=== PATIENT | female | born 1980 | race Caucasian/White ===

== ENCOUNTER 2025-05-04 10:15 | Emergency (ER) | payer MEDICAID, SELFPAY ==
[2025-05-04 10:37] VITALS: BP 138/90; PULSE 75; RESP 16; TEMP 36.9; O2SAT 100; BMI 27.3
--- NOTE | 2025-05-04 10:49 | XR_ITS ---
Examination: Abdomen sonogram, Limited Date and time of exam: 05/04/2025, 11:53 AM. INDICATION: Vomiting Technique: Real-time art scale transabdominal sonographic images of the upper abdomen obtained. Findings: Liver measures 14.4 cm and is diffusely echogenic. No focal masses. No evidence of gallbladder stones, wall thickening or pericholecystic fluid. Normal-appearing 3 mm gallbladder wall. Normal-appearing 2 mm common bile duct Normal hepatopedal flow in the portal vein. The IVC is patent. Pancreatic head appears normal. IMPRESSION: No evidence of cholelithiasis or cholecystitis. Fatty infiltration the liver without focal evidence of mass.
--- NOTE | 2025-05-04 10:49 | XR_ITS ---
Examination: PA lateral 2 views Technique: Upright lateral 2 views Date and time: May 04, 2025 1057 hrs. Comparison: November 26, 2022 Indications: Shortness of breath today. Findings: Normal heart size. Lungs are clear. The osseous structures are intact Impression: No active disease.
--- NOTE | 2025-05-04 10:49 | XR_ITS ---
Examination: CT abdomen and pelvis without contrast. Coronal 3-D reconstructions. Sagittal 2-D reconstructions. Date and time of exam:05/04/2025, 1:04 PM CTDI: vol (mGy): 7.94 DLP: (mGycm): 416 Indication: Right-sided flank pain Technique: Axial images of the abdomen have been obtained, 3 mm slice thickness Intravenous contrast material has not been administered. Low dose protocols were performed. One or more of the following dose reduction techniques were used; automated exposure control, adjustment of the mA and/or KV according to patient size, use of iterative reconstruction technique. Findings: Lung bases are clear. Liver, gallbladder, pancreas, spleen and bilateral adrenal glands are normal in size and contour 3 mm calculus in the distal right ureter. Multiple 1 mm nonobstructive calculi in the bilateral kidneys. No evidence of hydronephrosis or perinephric inflammation. Visualized GI tract is unremarkable. The appendix appears normal. No evidence for right lower quadrant inflammation. No no evidence of intra-abdominal masses or fluid collections. No evidence of acute bony abnormality. IMPRESSION: 3 mm calculus distal right ureter. No evidence of hydronephrosis or perinephric inflammation.
--- NOTE | 2025-05-04 10:52 | PD.EDRME ---
Rapid Medical Screening Exam E Arrival date/time: 05/04/25 10:15 45-year-old female presents to the emergency department today for multiple complaints including sore throat, abdominal pain, back pain and epistaxis. Chief Complaint: Back Pain/Injury Vital signs: Vital Signs Temperature 98.4 F 05/04/25 10:37 Pulse Rate 75 05/04/25 10:37 Respiratory Rate 16 05/04/25 10:37 Blood Pressure 138/90 H 05/04/25 10:37 Pulse Oximetry (%) 100 05/04/25 10:37 Oxygen Delivery Method Room Air 05/04/25 10:37
[2025-05-04 11:19] LABS: Basophils # (Auto) 0.1 Thou/mm3 (0.0-0.2); Basophils % (Auto) 1 % (0-2.5); Eosinophils # (Auto) 0.3 Thou/mm3 (0.0-0.5); Eosinophils % (Auto) 5 % (0-10); Hematocrit 38.6 % (36.0-46.0); Hemoglobin 12.2 g/dL (12.0-16.0); Immature Granulocytes Auto 0.01 Thou/mm3 (0.00-0.00); Lymphocytes # (Auto) 2.0 Thou/mm3 (1.0-4.8); Lymphocytes % (Auto) 38 % (10-50); Mean Corpuscular HGB Conc 31.6 g/dl (31.0-37.0); Mean Corpuscular Hemoglobin 25.4 pg (25.0-35.0); Mean Corpuscular Volume 80 fL (80-100); Monocytes # (Auto) 0.9 Thou/mm3 (0.0-0.8); Monocytes % (Auto) 16 % (0-12); Neutrophils # (Auto) 2.2 Thou/mm3 (1.8-7.7); Neutrophils % (Auto) 40 % (37-80); Nucleated Red Blood Cell # 0.00 Thou/mm3 (0.00-0.00); Nucleated Red Blood Cell % 0 /100 WBC (0); Platelet Count 233 Thou/mm3 (140-440); RDW Standard Deviation 54.8 fL (36.4-46.3); Red Blood Count 4.81 Miln/mm3 (4.00-5.20); White Blood Count 5.4 Thou/mm3 (3.6-11.0)
[2025-05-04 11:28] LABS: Strep A Rapid Negative (Negative)
[2025-05-04 11:34] LABS: Alanine Aminotransferase 85 U/L (10-49); Albumin, Serum 4.8 gm/dL (3.5-5.0); Albumin/Globulin Ratio 1.2 (1.2-2.2); Alkaline Phosphatase 82 U/L (46-116); Anion Gap 11 (7-16); Aspartate Amino Transferase 69 U/L (0-34); BUN/Creatinine Ratio 10 Ratio (12-20); Bilirubin,Total 0.9 mg/dL (0.3-1.2); Blood Urea Nitrogen 9 mg/dL (9-23); Calcium 10.7 mg/dL (8.3-10.6); Calcium (Corrected) 10.7 mg/dL (8.5-10.1); Carbon Dioxide 22.0 mMol/L (20.0-31.0); Chloride 104 mMol/L (98-107); Creatinine (Component) 0.9 mg/dL (0.6-1.3); Estimated Creatinine Clearance 71.3 mL/min (>60); Globulin 4.0 gm/dL (2.3-3.5); Glucose 100 mg/dL (74-106); Lipase 50 U/L (12-53); Magnesium 1.9 mg/dL (1.6-2.6); Osmolality,Calculated 272 (275-295); Potassium 3.9 mMol/L (3.4-5.1); Sodium 137 mMol/L (136-145); Total Protein 8.8 gm/dL (5.7-8.2); Troponin I < 0.002 ng/mL (0.0-0.045); eGFR > 60 See Note
[2025-05-04 11:44] LABS: INR 1.0 (0.9-1.3); Partial Thromboplastin Time 25.9 Seconds (22.0-36.0); Prothrombin Time 11.1 Seconds (9.0-12.2)
[2025-05-04 12:33] LABS: Collection Type, Urine Clean Catch
[2025-05-04 12:46] LABS: Bacteria,Urine 4+; Bilirubin,Urine Negative (Negative); Blood,Urine Negative (Negative); Clarity,Urine Turbid (Clear/Hazy); Color,Urine Lt-Yellow (Lt Yel-Yel); Culture Indicated,Urine Contaminated; Glucose, Urine Negative (Negative); HCG Qualitative,Urine Negative; Ketones,Urine Negative (Negative); Leukocyte Esterase,Urine Negative (Negative); Nitrite,Urine Negative (Negative); PH,Urine 7.0 (5.0-7.0); Protein,Urine Negative (Neg - Trace); RBC,Urine 2 /hpf (0-3); Specific Gravity,Urine 1.006 (1.001-1.035); Squamous Epithelial Cell,Urine 15 /hpf (0-5); Urobilinogen,Urine Negative mg/dL (0.0-1.0); WBC,Urine 4 /hpf (0-5)
[2025-05-04 12:50] LABS: Amphetamine/Methamp Scrn,U Negative (Negative); Barbiturate Screen,Urine Negative (Negative); Benzodiazepines Screen,Urine Negative (Negative); Benzoylecgonine Screen, Ur Negative (Negative); Fentanyl Screen,Urine Negative (Negative); Opiate Screen,Urine Negative (Negative); THC Screen,Urine Negative (Negative)
[2025-05-04 16:09] LABS: Mono Screen Positive (Negative)
--- NOTE | 2025-05-04 16:09 | PD.EDADULT ---
ED General RME/HPI General Chief complaint: Back Pain/Injury Stated complaint: FEELING LETHARGIC X 2 DAYS, BACK PAIN, NOSE BLEEDS Time Seen by Provider: 05/04/25 11:19 Arrival date/time: 05/04/25 10:15 CC: The right flank pain sore throat neck pain upper back pain. Patient states that she has been detoxing using chewable nicotine and decreasing her alcohol intake. But she had a sudden onset of the symptoms approximately 24 hours ago. Patient states they are somewhat the same however the patient does not appear in any acute distress. Vital signs are essentially stable. Denies chest pain fever chills RME / HPI RME / HPI narrative: 05/04/25 10:15 45-year-old female presents to the emergency department today for multiple complaints including sore throat, abdominal pain, back pain and epistaxis. Related Data Previous Rx's ?Medication ?Instructions ?Recorded albuterol sulfate 90 mcg/actuation 1 puff inhalation QID PRN 11/26/22 aerosol inhaler shortness of breath or wheezing #8.5 grams ketorolac 10 mg tablet 10 mg PO Q8H #10 tabs 05/04/25 ondansetron 4 mg disintegrating 4 mg PO Q8H #10 tabs 05/04/25 tablet Allergies Allergy/AdvReac Type Severity Reaction Status Date / Time avocado Allergy Severe THRAOT Verified 05/04/25 10:19 SWELLING banana Allergy Severe THRAOT Verified 05/04/25 10:19 SWELLING corn Allergy Severe THROAT Verified 05/04/25 10:19 SWELL AND ITCH White Potato Allergy Intermediate THROAT Uncoded 03/01/10 15:13 ITCH AND SWELL Review of Systems Review of Systems Narrative Review of Systems: GEN: No fever, no chills, no weight loss EYES: No discharge, no visual changes, no pain HEENT: No ear pain, no congestion, no sore throat PULM: No shortness of breath, no cough, no congestion CV: No chest pain, no dyspnea on exertion, no palpitations GI: No nausea, no vomiting, no diarrhea, no pain, no constipation : No frequency, no urgency, no dysuria MUSC/SKEL: No joint pain, no back pain, + SKIN: No rash PSYCH: No hallucinations, no depression HEME/LYMPH: No easy bleeding or bruising tendencies NEURO: No weakness, no headache Past Medical History Social History SMOKING STATUS: Never smoker ED Exam Narrative Physical exam: [General: Anxious but not in any acute distress Head normocephalic HEENT: Eyes pupils are PERRLA EOMs are intact mouth pink dry membranes uvula is midline swallow symmetrical phonation is normal all the subsystems of HEENT are within acceptable limits Neck is supple nontender Chest equal chest rise nontender to palpation Respiratory: Clear to auscultation no wheezes crackles or rubs CV: Rate rhythm is regular no murmurs rubs or clicks Abdomen is soft nontender no masses positive bowel sounds all 4 quadrants Back: No CVA tenderness no spinous process tenderness from cervical spine thoracic and lumbar spine Skin: Intact no petechiae rash induration ulceration or crepitus Extremities: Moving all extremity against resistance cap refill less than 2 seconds neurosensory intact Neuro: Awake alert oriented x3 Glascow coma 15 no focal deficits] Course Quality Measures none Orders Category Date Time Status Bedside COVID-19 Antigen Test NOW Care 05/04/25 10:49 Active Bedside Influenza A&B Antigen Test NOW Care 05/04/25 10:[address] abdomen pelvis wo con Stat Exams 05/04/25 10:49 Completed US gall bladder Stat Exams 05/04/25 10:49 Completed XR chest 2V Stat Exams 05/04/25 10:49 Completed CBC Stat Lab 05/04/25 10:54 Completed Comprehensive Metabolic Panel Stat Lab 05/04/25 10:54 Completed Drug Screen,Urine Stat Lab 05/04/25 11:45 Completed HCG Qualitative,Urine Stat Lab 05/04/25 11:45 Completed Lipase Stat Lab 05/04/25 10:54 Completed Magnesium Stat Lab 05/04/25 10:54 Completed [place] Screen Stat Lab 05/04/25 10:54 Completed Partial Thromboplastin Time Stat Lab 05/04/25 10:54 Completed Prothrombin Time with INR Stat Lab 05/04/25 10:54 Completed Strep A Rapid Stat Lab 05/04/25 10:34 Completed Troponin I Stat Lab 05/04/25 10:54 Completed Urinalysis, C/S if Indicated Stat Lab 05/04/25 11:45 Completed Vital Signs Vital signs: Vital Signs Temperature 98.4 F 05/04/25 10:37 Pulse Rate 75 05/04/25 10:37 Respiratory Rate 16 05/04/25 10:37 Blood Pressure 138/90 H 05/04/25 10:37 Pulse Oximetry (%) 100 05/04/25 10:37 Oxygen Delivery Method Room Air 05/04/25 10:37 Discharge Plan Plan Patient Disposition: HOME (Self Care) Patient condition on transfer: Stable Prescriptions/Referrals Prescriptions/Med Rec: New ketorolac 10 mg tablet 10 mg PO Q8H Qty: 10 0RF Rx Instructions: maximum total duration of 5 days from all oral, intranasal, or parenteral formulations ondansetron 4 mg tablet,disintegrating 4 mg PO Q8H Qty: 10 0RF No Action albuterol sulfate 90 mcg/actuation HFA aerosol inhaler 1 puff inhalation QID PRN (Reason: shortness of breath or wheezing) Qty: 8.5 0RF Referrals: Hari Yates MD [Physician] - In 1 week No Primary/Family,Physician [Primary Care Provider] - In 1 week Problem List Clinical Impression: Urolithiasis, CMV mononucleosis Patient/Caregiver Discharge Instructions Other Activity Instructions:: Take the medications as prescribed with is worsening of symptoms follow-up with your primary care provider rest drink plenty of fluids. Education Materials: ED Kidney Stone Undescended No ..., ED Mononucleosis Print Language: Syriac Stand Alone Forms: Makenzie Award Info., Patient Portal Info Letter, Work/School Release PA/NICK Supervising Physician PA/NICK Supervising Physician: Boris Sanchez ENP [facility] Clinical Information Provided by patient Medical Records Reviewed [facility] Meds/Rx Considered, not Ordered None Labs/Rad/Tests considered, not Ordered None Chronic Illness/Social Conditions which may negatively complicate care or outcome(s)-explain: None or not applicable EKG EKG not done Lab Interpretation Lab(s) interpretation(s): CBC shows no acute leukocytosis anemia thrombocytopenia Coags within acceptable limits CMP shows no significant electrolyte imbalances renal impairment mild transaminitis but no T. bili elevation. Troponin is negative Lipase is normal Urine is contaminated UDS is negative [place] is positive Strep is negative Imaging Provider imaging interpretation(s): CT abdomen pelvis shows a 3 mm UVJ Gallbladder shows fatty liver no other acute finding Chest x-ray is unremarkable for any acute finding requires merger or immediate intervention Medication Administration(s) none Diagnosis Differential diagnosis: Pneumonia cholelithiasis UTI Most likely dx, and/or detailed dx discussion: [place] urolithiasis Dispositon Disposition: Discharge Home
[2025-05-04 16:16] VITALS: BP 130/89; PULSE 69; RESP 16; TEMP 37.2; O2SAT 99
== END 2025-05-04 16:54 | disposition home or self-care (01) ==
PROVIDERS: Nurse Practitioner Primary Care; Emergency Provider Emergency Medicine
DX: N20.1 Calculus of ureter (principal); B27.10 Cytomegaloviral mononucleosis without complications; K76.0 Fatty (change of) liver, not elsewhere classified; R06.02 Shortness of breath
CPT/HCPCS: 36415; 71046; 74176; 76705; 80053; 80307; 81001; 81025; 83690; 83735; 84484; 85025; 85610; 85730; 86308; 87400; 87651; 87811; 99284